=== PATIENT | female | born 1965 | race Caucasian/White ===

== ENCOUNTER → 2016-07-24 | Outpatient (CLI) | payer OTHER ==
[~2016-07-24] MED LIST: PROTONIX 40 MG40 M1 PO
== END ==
LOC: EXRD 14:00
DX: E55.9 Vitamin D deficiency, unspecified (principal); M85.89 Other specified disorders of bone density and structure, multiple sites
CPT/HCPCS: 77080

== ENCOUNTER 2016-08-19 18:48 | Emergency (ER) | payer OTHER ==
[2016-08-19 21:41] LABS: HEMOGLOBIN 10.8 gm/dl (12.3-15.3); RED BLOOD COUNT 3.95 M/UL (4.00-5.10); WHITE BLOOD COUNT 5.3 K/UL (4.5-11.0)
[2016-08-19 21:51] LABS: BUN/CREATININE RATIO 16 (0-10)
== END 2016-08-20 00:31 | disposition home or self-care (01) ==
LOC: ER1 18:48
PROVIDERS: Physician Assistant
DX: R10.30 Lower abdominal pain, unspecified (principal); D64.9 Anemia, unspecified; G40.909 Epilepsy, unspecified, not intractable, without status epilepticus; K21.9 Gastro-esophageal reflux disease without esophagitis; G20 Parkinson's disease; Z90.710 Acquired absence of both cervix and uterus; Z90.49 Acquired absence of other specified parts of digestive tract; Z88.5 Allergy status to narcotic agent; Z88.6 Allergy status to analgesic agent; Z88.8 Allergy status to other drugs, medicaments and biological substances
CPT/HCPCS: 36415; 80053; 80185; 81001; 83690; 84703; 85025; 87086; 96360; 96361; 99284; J7040; J7050; Q9962

== ENCOUNTER 2020-06-07 20:45 | Emergency (ER) | payer OTHER ==
[~2020-06-07 20:45] MED LIST changes: +ASPIRIN EC81 MG PO; +ATORVASTATIN CA20 MG PO; +CARBIDOPA-LEVO1 EA14 PO; +CYCLOBENZAPRINE10 MG PO; +IBUPROFEN600 MG PO; +MACROBID 100 M100 MG PO; +MOTRIN IB200 MG PO; +ONDANSETRON ODT4 MG PO; +PEPCID20 MG PO; +PYRIDIUM200 MG PO; +ZOFRAN4 MG PO
[2020-06-07 21:27] LABS: HEMOGLOBIN 11.4 gm/dl (12.3-15.3); RED BLOOD COUNT 4.37 M/UL (4.00-5.10); WHITE BLOOD COUNT 9.4 K/UL (4.5-11.0)
[2020-06-07 21:44] LABS: BUN/CREATININE RATIO 25 (0-10)
[2020-06-08 02:39] LABS: HEMOGLOBIN 10.2 gm/dl (12.3-15.3); WHITE BLOOD COUNT 10.9 K/UL (4.5-11.0)
[2020-06-08 02:58] LABS: BUN/CREATININE RATIO 23 (0-10)
[2020-06-08 03:19] LABS: RED BLOOD COUNT 3.9 M/UL (4.00-5.10)
[2020-06-08] MEDS ORDERED: PERCOCET 5/325 T1 EA PO (04:36)
== END 2020-06-08 05:05 | disposition home or self-care (01) ==
LOC: ER1 20:45
PROVIDERS: Family Medicine
DX: R07.89 Other chest pain (principal); Z90.710 Acquired absence of both cervix and uterus; Z88.8 Allergy status to other drugs, medicaments and biological substances; Z88.6 Allergy status to analgesic agent; V49.9XXA Car occupant (driver) (passenger) injured in unspecified traffic accident, initial encounter
CPT/HCPCS: 70450; 71260; 72125; 73140; 80053; 80185; 81001; 82550; 82553; 83874; 84484; 85025; 85610; 96374; 96375; 96376; 99284; J1885; J2270; J2405; Q9967

== ENCOUNTER 2020-06-11 01:19 | Emergency (ER) | payer OTHER ==
[~2020-06-11 01:19] MED LIST changes: +PERCOCET 5/325 T1 EA PO
[2020-06-11] MEDS ORDERED: CYCLOBENZAPRINE10 MG PO (02:27)
== END 2020-06-11 02:34 | disposition home or self-care (01) ==
LOC: ER1 01:19
DX: S39.011A Strain of muscle, fascia and tendon of abdomen, initial encounter (principal); S29.011A Strain of muscle and tendon of front wall of thorax, initial encounter; S30.1XXA Contusion of abdominal wall, initial encounter; Z90.49 Acquired absence of other specified parts of digestive tract; Z88.1 Allergy status to other antibiotic agents; Z88.8 Allergy status to other drugs, medicaments and biological substances; V49.59XA Passenger injured in collision with other motor vehicles in traffic accident, initial encounter; Y92.410 Unspecified street and highway as the place of occurrence of the external cause
CPT/HCPCS: 99284

== ENCOUNTER 2020-07-08 15:42 | Emergency (ER) | payer OTHER ==
[2020-07-08 16:37] LABS: HEMOGLOBIN 10.6 gm/dl (12.3-15.3); RED BLOOD COUNT 4.1 M/UL (4.00-5.10); WHITE BLOOD COUNT 5.6 K/UL (4.5-11.0)
[2020-07-08 16:55] LABS: BUN/CREATININE RATIO 16 (0-10)
== END 2020-07-08 19:45 | disposition home or self-care (01) ==
LOC: ER1 15:42
PROVIDERS: Physician Assistant
DX: M25.512 Pain in left shoulder (principal); K21.9 Gastro-esophageal reflux disease without esophagitis; G40.909 Epilepsy, unspecified, not intractable, without status epilepticus; Z90.49 Acquired absence of other specified parts of digestive tract; Z90.710 Acquired absence of both cervix and uterus; Z88.8 Allergy status to other drugs, medicaments and biological substances
CPT/HCPCS: 71045; 80053; 81001; 82550; 82553; 83690; 83874; 84484; 85025; 93005; 99284

== ENCOUNTER 2020-11-01 19:41 | Emergency (ER) | payer OTHER ==
[2020-11-01 22:10] LABS: RED BLOOD COUNT 4.25 M/UL (4.00-5.10); WHITE BLOOD COUNT 5.4 K/UL (4.5-11.0)
[2020-11-01 22:36] LABS: BUN/CREATININE RATIO 16 (0-10)
[2020-11-02] MEDS ORDERED: OMNICEF 300 MG300 MG PO (02:07)
== END 2020-11-02 02:20 | disposition home or self-care (01) ==
LOC: ER1 19:41
PROVIDERS: Physician Assistant
DX: N39.0 Urinary tract infection, site not specified (principal); Z90.49 Acquired absence of other specified parts of digestive tract; Z90.710 Acquired absence of both cervix and uterus
CPT/HCPCS: 80053; 81001; 83690; 85025; 87086; 99283

== ENCOUNTER 2021-07-17 05:29 | Emergency (ER) | payer OTHER ==
[~2021-07-17 05:29] MED LIST changes: +OMNICEF 300 MG300 MG PO
[2021-07-17 05:57] LABS: HEMOGLOBIN 11.3 gm/dl (12.3-15.3); RED BLOOD COUNT 4.37 M/UL (4.00-5.10); WHITE BLOOD COUNT 10.4 K/UL (4.5-11.0)
[2021-07-17 06:13] LABS: BUN/CREATININE RATIO 24 (0-10)
[2021-07-17] MEDS ORDERED: ZOFRAN ODT 4 MG4 MG SL (08:12)
== END 2021-07-17 08:25 | disposition home or self-care (01) ==
LOC: ER1 05:29
PROVIDERS: Student in an Organized Health Care Education/Training Program
DX: R10.32 Left lower quadrant pain (principal); R10.814 Left lower quadrant abdominal tenderness; R11.2 Nausea with vomiting, unspecified
CPT/HCPCS: 80053; 81001; 83690; 85025; 96374; 96375; 99284; J1956; J2270; J2405; Q9967

== ENCOUNTER 2021-08-23 13:45 | Emergency (ER) | payer OTHER ==
[~2021-08-23 13:45] MED LIST changes: +ZOFRAN ODT 4 MG4 MG SL
[2021-08-23 15:29] LABS: HEMOGLOBIN 10.9 gm/dl (12.3-15.3); RED BLOOD COUNT 4.15 M/UL (4.00-5.10); WHITE BLOOD COUNT 7.6 K/UL (4.5-11.0)
[2021-08-23 15:51] LABS: BUN/CREATININE RATIO 25 (0-10)
[2021-08-23] MEDS ORDERED: CITRATE OF MAG296 ML PO (18:53)
[2021-08-23] MEDS ORDERED: OMNICEF 300 MG300 MG PO (20:19)
== END 2021-08-23 19:30 | disposition home or self-care (01) ==
LOC: ER1 13:45
PROVIDERS: Student in an Organized Health Care Education/Training Program
DX: N39.0 Urinary tract infection, site not specified (principal); K59.00 Constipation, unspecified; K21.9 Gastro-esophageal reflux disease without esophagitis
CPT/HCPCS: 80053; 81001; 83690; 85025; 99284; Q9967

== ENCOUNTER 2021-12-04 05:12 | Emergency (ER) | payer OTHER ==
[~2021-12-04 05:12] MED LIST changes: +CITRATE OF MAG296 ML PO
[2021-12-04] MEDS ORDERED: CORTISPORIN OTI10 M1 EARLF (07:30)
[2021-12-04] MEDS ORDERED: MUCINEX600 MG PO (07:30)
== END 2021-12-04 07:52 | disposition home or self-care (01) ==
LOC: ER1 05:12
DX: H60.92 Unspecified otitis externa, left ear (principal); J02.9 Acute pharyngitis, unspecified; Z90.49 Acquired absence of other specified parts of digestive tract; Z90.710 Acquired absence of both cervix and uterus; Z88.8 Allergy status to other drugs, medicaments and biological substances; Z20.822 Contact with and (suspected) exposure to COVID-19; Z88.6 Allergy status to analgesic agent
CPT/HCPCS: 99283; U0002